=== PATIENT | male | born 1960 | race Two or more races ===

== ENCOUNTER 2016-10-02 05:10 | Inpatient (IN) | payer OTHER ==
[~2016-10-02] VITALS: Ht 167.6 cm; Wt 64.5 kg
[2016-10-02 05:48] LABS: BASOPHIL % 0.4 % (0-2); PLATELET COUNT 212 x10^3mcL (130-400); RED CELL DISTRIBUTION WIDTH 16.4 % (11.5-14.5)
[2016-10-02 06:04] LABS: ALBUMIN 3.4 g/dL (3.4-5.0); BILIRUBIN TOTAL 0.43 mg/dL (0.20-1.00); CALCIUM 9.3 mg/dL (8.5-10.1); CARBON DIOXIDE 24.3 mmol/L (21-32); MAGNESIUM 2.8 mg/dL (1.8-2.4); POTASSIUM SERUM 4.2 mmol/L (3.5-5.1)
[2016-10-02 06:12] LABS: TOTAL PROTEIN, SERUM 8.4 g/dL (6.4-8.2)
[2016-10-02 06:16] LABS: CREATININE SERUM 13.9 mg/dL (0.7-1.3)
[2016-10-02] MEDS ORDERED: NOR10 PO (07:11)
[2016-10-02] MEDS ORDERED: FOSRENOL1000 M1 PO (07:12)
[2016-10-02] MEDS ORDERED: BENAZEPRIL HYDR40 M1 PO (07:12)
[2016-10-02] MEDS ORDERED: HUMULIN 70/303 ML (07:13)
[2016-10-02] MEDS ORDERED: TOPROL XL25 MG PO (07:14)
[2016-10-02] MEDS ORDERED: CATAPRES0.1 MG PO (07:14)
[2016-10-02] MEDS ORDERED: NATURE'S BLEND F1 MG PO (07:14)
[2016-10-02] MEDS ORDERED: REG5 PO (07:15)
[2016-10-02 08:46] VITALS: BP 135/67
[2016-10-02 10:38] LABS: CHOLESTEROL/HDL RATIO 3.7; PHOSPHOROUS 4.3 mg/dL (2.5-4.9)
[2016-10-02 14:20] VITALS: BP 149/73
[2016-10-02 15:00] LABS: T3 TOTAL 0.8 ng/mL
[2016-10-02 16:30] LABS: FREE T4 0.97 ng/dL (0.76-1.46); T4(THYROXINE) 5.8 ug/dL (4.7-13.3)
[2016-10-02 19:05] VITALS: BP 149/72
[2016-10-02 22:14] VITALS: BP 108/61
[2016-10-03 06:07] VITALS: BP 111/59
[2016-10-03 06:22] LABS: BASOPHIL % 0.7 % (0-2); PLATELET COUNT 199 x10^3mcL (130-400)
[2016-10-03 06:43] LABS: CALCIUM 9.1 mg/dL (8.5-10.1); CARBON DIOXIDE 27.6 mmol/L (21-32); MAGNESIUM 2.3 mg/dL (1.8-2.4); POTASSIUM SERUM 4.1 mmol/L (3.5-5.1)
[2016-10-03 07:22] LABS: CREATININE SERUM 9.9 mg/dL (0.7-1.3)
[2016-10-03 07:43] LABS: RED CELL DISTRIBUTION WIDTH 16.3 % (11.5-14.5)
[2016-10-03 09:54] VITALS: BP 106/60
[2016-10-03 13:42] VITALS: BP 106/60
[2016-10-03 14:00] VITALS: BP 132/68
== END 2016-10-03 16:50 | disposition home or self-care (01) | DRG 312 ==
LOC: ED 05:10 → DU 07:27
PROVIDERS: Emergency Medicine; ADMIT Family Medicine
DX: R55 Syncope and collapse (principal); K85.90 Acute pancreatitis without necrosis or infection, unspecified; N18.6 End stage renal disease; N17.0 Acute kidney failure with tubular necrosis; I12.0 Hypertensive chronic kidney disease with stage 5 chronic kidney disease or end stage renal disease; D68.69 Other thrombophilia; S00.03XA Contusion of scalp, initial encounter; S00.81XA Abrasion of other part of head, initial encounter; E11.59 Type 2 diabetes mellitus with other circulatory complications; E11.22 Type 2 diabetes mellitus with diabetic chronic kidney disease; E11.51 Type 2 diabetes mellitus with diabetic peripheral angiopathy without gangrene; E11.65 Type 2 diabetes mellitus with hyperglycemia; H54.42 Blindness, left eye, normal vision right eye; Z79.4 Long term (current) use of insulin; Z99.2 Dependence on renal dialysis; W18.11XA Fall from or off toilet without subsequent striking against object, initial encounter; Y93.9 Activity, unspecified; Y92.002 Bathroom of unspecified non-institutional (private) residence as the place of occurrence of the external cause
CPT/HCPCS: 82962; 83880; 84439; J7030; J8597; Q0092

== ENCOUNTER 2017-10-27 12:36 | Emergency (ER) | payer OTHER ==
[~2017-10-27] VITALS: Ht 170.2 cm; Wt 64.4 kg
[~2017-10-27 12:36] MED LIST: BENAZEPRIL HYDR40 M1 PO; CATAPRES0.1 MG PO; FOSRENOL1000 M1 PO; HUMULIN 70/303 ML; NATURE'S BLEND F1 MG PO; NOR10 PO; REG5 PO; TOPROL XL25 MG PO
[2017-10-27 12:42] VITALS: Ht 170.2 cm; Wt 64.4 kg
[2017-10-27 13:07] LABS: BASOPHIL % 0.4 % (0-2); PLATELET COUNT 204 x10^3mcL (130-400)
[2017-10-27 13:11] LABS: RED CELL DISTRIBUTION WIDTH 15.9 % (11.5-14.5)
[2017-10-27 13:21] LABS: CALCIUM 8.6 mg/dL (8.5-10.1); CARBON DIOXIDE 34.1 mmol/L (21-32); POTASSIUM SERUM 5.2 mmol/L (3.5-5.1)
[2017-10-27 13:25] LABS: CREATININE SERUM 7.2 mg/dL (0.7-1.3)
[2017-10-27 18:07] VITALS: BP 143/73
== END 2017-10-27 18:07 | disposition home or self-care (01) ==
LOC: ED 12:36
PROVIDERS: Emergency Medicine
DX: D62 Acute posthemorrhagic anemia (principal); E11.22 Type 2 diabetes mellitus with diabetic chronic kidney disease; I12.9 Hypertensive chronic kidney disease with stage 1 through stage 4 chronic kidney disease, or unspecified chronic kidney disease; N18.9 Chronic kidney disease, unspecified
CPT/HCPCS: 36415; J7050; P9016; Q0092

== ENCOUNTER 2018-03-29 16:01 | Inpatient (IN) | payer OTHER ==
[~2018-03-29] VITALS: Ht 162.6 cm; Wt 61.8 kg
[2018-03-29 16:09] VITALS: Ht 162.6 cm; Wt 61.8 kg
[2018-03-29 16:51] LABS: BASOPHIL % 0 % (0-2); PLATELET COUNT 434 x10^3mcL (130-400)
[2018-03-29 17:00] LABS: MAGNESIUM 2.4 mg/dL (1.8-2.4)
[2018-03-29 17:06] LABS: BILIRUBIN TOTAL 0.4 mg/dL (0.20-1.00); CALCIUM 9.6 mg/dL (8.5-10.1)
[2018-03-29 17:12] LABS: ALBUMIN 2.7 g/dL (3.4-5.0); TOTAL PROTEIN, SERUM 8.6 g/dL (6.4-8.2)
[2018-03-29 17:36] LABS: PHOSPHOROUS 13.7 mg/dL (2.5-4.9)
[2018-03-29 20:25] LABS: CHOLESTEROL/HDL RATIO 3.7
[2018-03-29 22:15] VITALS: BP 151/68
[2018-03-30 05:50] VITALS: BP 142/46
[2018-03-30 07:08] LABS: CALCIUM 9.4 mg/dL (8.5-10.1); CARBON DIOXIDE 14.2 mmol/L (21-32); MAGNESIUM 2.5 mg/dL (1.8-2.4)
[2018-03-30 08:03] LABS: CREATININE SERUM 21.3 mg/dL (0.7-1.3); POTASSIUM SERUM 5.8 mmol/L (3.5-5.1)
[2018-03-30 08:15] LABS: BASOPHIL % 0.5 % (0-2); PLATELET COUNT 382 x10^3mcL (130-400); RED CELL DISTRIBUTION WIDTH 16.8 % (11.5-14.5)
[2018-03-30 10:07] VITALS: BP 128/60
[2018-03-30 12:24] VITALS: BP 136/59
[2018-03-30 17:30] VITALS: BP 144/66
[2018-03-30 20:00] VITALS: BP 145/62
[2018-03-31 00:55] VITALS: BP 144/62
[2018-03-31 05:19] VITALS: BP 154/76
[2018-03-31 07:13] LABS: BASOPHIL % 0.2 % (0-2); PLATELET COUNT 391 x10^3mcL (130-400)
[2018-03-31 07:14] LABS: RED CELL DISTRIBUTION WIDTH 16.7 % (11.5-14.5)
[2018-03-31 07:26] LABS: CALCIUM 8.6 mg/dL (8.5-10.1); CARBON DIOXIDE 21.1 mmol/L (21-32); MAGNESIUM 2.2 mg/dL (1.8-2.4); POTASSIUM SERUM 5.5 mmol/L (3.5-5.1)
[2018-03-31 07:32] LABS: CREATININE SERUM 19.5 mg/dL (0.7-1.3)
[2018-03-31 07:57] LABS: PHOSPHOROUS 11.6 mg/dL (2.5-4.9)
[2018-03-31 08:55] VITALS: BP 131/60
[2018-03-31 13:05] VITALS: BP 125/56
[2018-03-31 16:40] VITALS: BP 124/52
[2018-03-31 20:24] VITALS: BP 148/64
[2018-04-01 05:01] VITALS: BP 134/60
[2018-04-01 06:49] LABS: CALCIUM 8.1 mg/dL (8.5-10.1); CARBON DIOXIDE 17.4 mmol/L (21-32); MAGNESIUM 2.1 mg/dL (1.8-2.4)
[2018-04-01 07:23] LABS: POTASSIUM SERUM 6.7 mmol/L (3.5-5.1)
[2018-04-01 07:24] LABS: CREATININE SERUM 20.8 mg/dL (0.7-1.3)
[2018-04-01 08:25] LABS: BASOPHIL % 0.4 % (0-2); PLATELET COUNT 376 x10^3mcL (130-400)
[2018-04-01 08:28] LABS: RED CELL DISTRIBUTION WIDTH 16.8 % (11.5-14.5)
[2018-04-01 09:34] VITALS: BP 138/58
[2018-04-01 10:01] LABS: BILIRUBIN TOTAL 0.46 mg/dL (0.20-1.00); CALCIUM 8.3 mg/dL (8.5-10.1); CARBON DIOXIDE 15.8 mmol/L (21-32); TOTAL PROTEIN, SERUM 7.1 g/dL (6.4-8.2)
[2018-04-01 10:18] LABS: CREATININE SERUM 21.6 mg/dL (0.7-1.3)
[2018-04-01 14:21] LABS: BASOPHIL % 0.7 % (0-2); PLATELET COUNT 367 x10^3mcL (130-400)
[2018-04-01 14:37] LABS: RED CELL DISTRIBUTION WIDTH 17.1 % (11.5-14.5)
[2018-04-01 16:24] LABS: rbc morphology (normal/abnorm) ABNORMAL (NORMAL)
[2018-04-01 16:25] LABS: ovalocyte/elliptocyte 1+
[2018-04-01 16:26] LABS: ovalocyte/elliptocyte 1+; rbc morphology (normal/abnorm) ABNORMAL (NORMAL); tear drop cell (dacryocyte) 1+
[2018-04-01 18:03] VITALS: BP 137/57
[2018-04-01 21:16] VITALS: BP 169/63
[2018-04-01 22:08] LABS: BASOPHIL % 0.2 % (0-2); PLATELET COUNT 354 x10^3mcL (130-400)
[2018-04-01 22:12] LABS: RED CELL DISTRIBUTION WIDTH 16.5 % (11.5-14.5)
[2018-04-01 23:08] VITALS: BP 172/74
[2018-04-02 00:48] VITALS: BP 164/73
[2018-04-02 05:45] VITALS: BP 149/68
[2018-04-02 06:30] LABS: BASOPHIL % 0.5 % (0-2); PLATELET COUNT 344 x10^3mcL (130-400)
[2018-04-02 07:04] LABS: CALCIUM 8.6 mg/dL (8.5-10.1); CARBON DIOXIDE 23.8 mmol/L (21-32); MAGNESIUM 1.7 mg/dL (1.8-2.4); POTASSIUM SERUM 4.2 mmol/L (3.5-5.1)
[2018-04-02 08:00] LABS: CREATININE SERUM 14.9 mg/dL (0.7-1.3)
[2018-04-02 08:03] LABS: PHOSPHOROUS 9.9 mg/dL (2.5-4.9)
[2018-04-02 08:56] VITALS: BP 148/67
[2018-04-02 12:30] VITALS: BP 148/70
[2018-04-02 17:35] VITALS: BP 157/67
[2018-04-02 20:58] VITALS: BP 125/67
[2018-04-03 05:34] VITALS: BP 154/74
[2018-04-03 07:07] LABS: BASOPHIL % 0.2 % (0-2); PLATELET COUNT 365 x10^3mcL (130-400)
[2018-04-03 07:10] LABS: RED CELL DISTRIBUTION WIDTH 17.3 % (11.5-14.5)
[2018-04-03 07:16] LABS: CALCIUM 9.2 mg/dL (8.5-10.1); MAGNESIUM 1.8 mg/dL (1.8-2.4); PHOSPHOROUS 7.7 mg/dL (2.5-4.9); POTASSIUM SERUM 4.6 mmol/L (3.5-5.1)
[2018-04-03 07:18] LABS: CREATININE SERUM 11.8 mg/dL (0.7-1.3)
[2018-04-03 09:21] VITALS: BP 145/70
[2018-04-03 12:50] VITALS: BP 153/73
[2018-04-03 17:28] VITALS: BP 154/79
[2018-04-03 21:23] VITALS: BP 166/75
[2018-04-04 05:20] VITALS: BP 164/80
[2018-04-04 06:44] LABS: BASOPHIL % 0.3 % (0-2); PLATELET COUNT 357 x10^3mcL (130-400); RED CELL DISTRIBUTION WIDTH 16.7 % (11.5-14.5)
[2018-04-04 07:08] LABS: CALCIUM 9.6 mg/dL (8.5-10.1); CARBON DIOXIDE 23.7 mmol/L (21-32); MAGNESIUM 2.2 mg/dL (1.8-2.4); POTASSIUM SERUM 4.9 mmol/L (3.5-5.1)
[2018-04-04 07:11] LABS: CREATININE SERUM 13.9 mg/dL (0.7-1.3)
[2018-04-04 09:09] VITALS: BP 153/69
[2018-04-04 12:06] VITALS: BP 138/60
[2018-04-04 13:01] VITALS: BP 137/63
[2018-04-04 21:27] VITALS: BP 150/72
[2018-04-05 06:17] VITALS: BP 148/68
[2018-04-05 08:58] VITALS: BP 137/61
[2018-04-05 13:05] VITALS: BP 133/70
[2018-04-05 13:19] VITALS: BP 133/70
== END 2018-04-05 15:35 | disposition home or self-care (01) | DRG 252 ==
LOC: ED 16:01 → DU 19:48
PROVIDERS: Emergency Medicine; Family Medicine; General Practice; Surgery; ADMIT Internal Medicine
PROC: 05H533Z Insertion of Infusion Device into Right Subclavian Vein, Percutaneous Approach (ICD-10-PCS; 2018-04-01)
PROC: B546ZZA Ultrasonography of Right Subclavian Vein, Guidance (ICD-10-PCS; 2018-04-01)
PROC: B548ZZZ Ultrasonography of Superior Vena Cava (ICD-10-PCS; principal; 2018-04-01 12:00)
PROC: 057F3ZZ Dilation of Left Cephalic Vein, Percutaneous Approach (ICD-10-PCS; 2018-04-02)
PROC: B51WYZZ Fluoroscopy of Dialysis Shunt/Fistula using Other Contrast (ICD-10-PCS; 2018-04-02)
PROC: B31JYZZ Fluoroscopy of Left Upper Extremity Arteries using Other Contrast (ICD-10-PCS; 2018-04-02)
DX: T82.590A Other mechanical complication of surgically created arteriovenous fistula, initial encounter (principal); J18.9 Pneumonia, unspecified organism; N18.6 End stage renal disease; E43 Unspecified severe protein-calorie malnutrition; K85.90 Acute pancreatitis without necrosis or infection, unspecified; I12.0 Hypertensive chronic kidney disease with stage 5 chronic kidney disease or end stage renal disease; D68.69 Other thrombophilia; E87.1 Hypo-osmolality and hyponatremia; E11.22 Type 2 diabetes mellitus with diabetic chronic kidney disease; E11.65 Type 2 diabetes mellitus with hyperglycemia; K52.9 Noninfective gastroenteritis and colitis, unspecified; E83.39 Other disorders of phosphorus metabolism; E87.5 Hyperkalemia; D63.1 Anemia in chronic kidney disease; Z99.2 Dependence on renal dialysis; Z68.23 Body mass index [BMI] 23.0-23.9, adult; Z79.84 Long term (current) use of oral hypoglycemic drugs
CPT/HCPCS: 36005; 82962; 83880; A4301; C1769; C1884; C1887; J0610; J0885-EC; J1644; J1956; J2001; J2250; J2405; J3010; J3490; J7030; J7040; J7050; J7613; P9016; Q0092; Q0163; Q9967

== ENCOUNTER 2018-05-08 08:34 | Inpatient (IN) | payer OTHER ==
[~2018-05-08] VITALS: Ht 162.6 cm; Wt 62.8 kg
[2018-05-08 08:40] VITALS: Ht 162.6 cm; Wt 62.8 kg
[2018-05-08 10:14] LABS: BASOPHIL % 0.1 % (0-2); PLATELET COUNT 385 x10^3mcL (130-400)
[2018-05-08 10:17] LABS: RED CELL DISTRIBUTION WIDTH 18.2 % (11.5-14.5)
[2018-05-08 10:31] LABS: CALCIUM 7.6 mg/dL (8.5-10.1); CARBON DIOXIDE 10.1 mmol/L (21-32); POTASSIUM SERUM 5.2 mmol/L (3.5-5.1)
[2018-05-08 10:37] LABS: BILIRUBIN TOTAL 0.44 mg/dL (0.20-1.00)
[2018-05-08 10:39] LABS: T3 TOTAL 0.45 ng/mL
[2018-05-08 10:41] LABS: FREE T4 0.71 ng/dL (0.76-1.46)
[2018-05-08 10:46] LABS: ALBUMIN 2.5 g/dL (3.4-5.0); CHOLESTEROL/HDL RATIO 2.5
[2018-05-08 11:14] LABS: CREATININE SERUM 23.8 mg/dL (0.7-1.3)
[2018-05-08 16:18] LABS: MAGNESIUM 3.1 mg/dL (1.8-2.4)
[2018-05-08 17:15] LABS: PHOSPHOROUS 8.7 mg/dL (2.5-4.9)
[2018-05-08 17:20] VITALS: BP 156/65
[2018-05-08 20:25] VITALS: BP 152/63
[2018-05-09 05:19] VITALS: BP 133/57
[2018-05-09 06:20] LABS: BASOPHIL % 0.6 % (0-2); PLATELET COUNT 370 x10^3mcL (130-400)
[2018-05-09 07:08] LABS: CALCIUM 7.5 mg/dL (8.5-10.1); MAGNESIUM 2.8 mg/dL (1.8-2.4); POTASSIUM SERUM 5.5 mmol/L (3.5-5.1)
[2018-05-09 07:18] LABS: RED CELL DISTRIBUTION WIDTH 18.4 % (11.5-14.5)
[2018-05-09 07:32] LABS: PHOSPHOROUS 7.5 mg/dL (2.5-4.9)
[2018-05-09 08:00] VITALS: BP 156/66
[2018-05-09 09:34] VITALS: BP 156/66
[2018-05-09 13:04] VITALS: BP 140/62
[2018-05-09 17:32] VITALS: BP 125/53
[2018-05-09 21:01] VITALS: BP 125/59
[2018-05-10 06:06] LABS: PLATELET COUNT 332 x10^3mcL (130-400)
[2018-05-10 06:12] VITALS: BP 153/64
[2018-05-10 06:39] LABS: CALCIUM 7.9 mg/dL (8.5-10.1); CARBON DIOXIDE 16.5 mmol/L (21-32); MAGNESIUM 2.2 mg/dL (1.8-2.4); PHOSPHOROUS 8.8 mg/dL (2.5-4.9); POTASSIUM SERUM 3.6 mmol/L (3.5-5.1)
[2018-05-10 06:47] LABS: CREATININE SERUM 14.5 mg/dL (0.7-1.3)
[2018-05-10 08:00] LABS: BASOPHIL % 0 % (0-2); RED CELL DISTRIBUTION WIDTH 18.3 % (11.5-14.5)
[2018-05-10 09:04] VITALS: BP 143/55
[2018-05-10 14:06] VITALS: BP 130/55
[2018-05-10 21:12] VITALS: BP 147/66
[2018-05-11 05:33] VITALS: BP 144/64
[2018-05-11 06:49] LABS: CALCIUM 7.8 mg/dL (8.5-10.1); CARBON DIOXIDE 20.2 mmol/L (21-32); MAGNESIUM 1.9 mg/dL (1.8-2.4); PHOSPHOROUS 8.4 mg/dL (2.5-4.9); POTASSIUM SERUM 4.2 mmol/L (3.5-5.1)
[2018-05-11 06:53] LABS: CREATININE SERUM 10.6 mg/dL (0.7-1.3)
[2018-05-11 06:57] LABS: PLATELET COUNT 302 x10^3mcL (130-400)
[2018-05-11 07:12] LABS: BASOPHIL % 0 % (0-2); RED CELL DISTRIBUTION WIDTH 18.3 % (11.5-14.5)
[2018-05-11 09:27] VITALS: BP 143/63
[2018-05-11 15:04] VITALS: BP 138/59
[2018-05-11 17:01] VITALS: BP 154/57
[2018-05-11 19:20] VITALS: BP 153/52
[2018-05-12 05:22] VITALS: BP 131/49
[2018-05-12 07:39] LABS: BASOPHIL % 0.3 % (0-2); PLATELET COUNT 275 x10^3mcL (130-400)
[2018-05-12 07:46] LABS: RED CELL DISTRIBUTION WIDTH 16.6 % (11.5-14.5)
[2018-05-12 08:39] LABS: CALCIUM 7.3 mg/dL (8.5-10.1); CARBON DIOXIDE 24.8 mmol/L (21-32); MAGNESIUM 1.6 mg/dL (1.8-2.4); PHOSPHOROUS 7.9 mg/dL (2.5-4.9); POTASSIUM SERUM 3.9 mmol/L (3.5-5.1)
[2018-05-12 08:57] VITALS: BP 122/48
[2018-05-12 12:31] VITALS: BP 122/48
[2018-05-12 13:19] VITALS: BP 119/60
== END 2018-05-12 14:46 | disposition home or self-care (01) | DRG 673 ==
LOC: ED 08:34 → DU 14:35
PROVIDERS: General Practice; Specialist; ADMIT Internal Medicine
PROC: 05HM33Z Insertion of Infusion Device into Right Internal Jugular Vein, Percutaneous Approach (ICD-10-PCS; principal; 2018-05-09)
PROC: B543ZZA Ultrasonography of Right Jugular Veins, Guidance (ICD-10-PCS; 2018-05-09)
PROC: 057F3ZZ Dilation of Left Cephalic Vein, Percutaneous Approach (ICD-10-PCS; 2018-05-10)
PROC: B51WYZZ Fluoroscopy of Dialysis Shunt/Fistula using Other Contrast (ICD-10-PCS; 2018-05-10)
PROC: B31J1ZZ Fluoroscopy of Left Upper Extremity Arteries using Low Osmolar Contrast (ICD-10-PCS; 2018-05-10)
PROC: 031809D Bypass Left Brachial Artery to Upper Arm Vein with Autologous Venous Tissue, Open Approach (ICD-10-PCS; 2018-05-11)
PROC: 037 Upper Arteries, Dilation (ICD-10-PCS; 2018-05-11)
PROC: B54 Imaging, Veins, Ultrasonography (ICD-10-PCS; 2018-05-11)
PROC: 05HM33Z Insertion of Infusion Device into Right Internal Jugular Vein, Percutaneous Approach (ICD-10-PCS; 2018-05-11)
PROC: B543ZZA Ultrasonography of Right Jugular Veins, Guidance (ICD-10-PCS; 2018-05-11)
DX: I12.0 Hypertensive chronic kidney disease with stage 5 chronic kidney disease or end stage renal disease (principal); N17.0 Acute kidney failure with tubular necrosis; E43 Unspecified severe protein-calorie malnutrition; K85.90 Acute pancreatitis without necrosis or infection, unspecified; N18.6 End stage renal disease; E87.2 Acidosis; D68.69 Other thrombophilia; T82.868A Thrombosis due to vascular prosthetic devices, implants and grafts, initial encounter; E11.22 Type 2 diabetes mellitus with diabetic chronic kidney disease; E11.65 Type 2 diabetes mellitus with hyperglycemia; D63.1 Anemia in chronic kidney disease; E83.42 Hypomagnesemia; E87.5 Hyperkalemia; E83.39 Other disorders of phosphorus metabolism; Z99.2 Dependence on renal dialysis; Z68.21 Body mass index [BMI] 21.0-21.9, adult; Z79.84 Long term (current) use of oral hypoglycemic drugs
CPT/HCPCS: 36005; 36600; 82962; 83880; 84439; A4301; C1760; C1769; C1887; G0480; J0690; J1170; J1642; J1644; J2001; J2060; J2250; J2405; J2704; J2765; J3010; J3490; J7030; J7050; Q0092; Q0163; Q9967

== ENCOUNTER 2018-05-16 10:36 | Inpatient (IN) | payer OTHER ==
[~2018-05-16] VITALS: Ht 152.4 cm; Wt 61.9 kg
[2018-05-16 12:36] LABS: BASOPHIL % 0.7 % (0-2); PLATELET COUNT 300 x10^3mcL (130-400)
[2018-05-16 12:55] LABS: RED CELL DISTRIBUTION WIDTH 16.6 % (11.5-14.5)
[2018-05-16 12:57] LABS: BILIRUBIN TOTAL 0.23 mg/dL (0.20-1.00); CALCIUM 8.4 mg/dL (8.5-10.1); CARBON DIOXIDE 28.6 mmol/L (21-32); POTASSIUM SERUM 3.6 mmol/L (3.5-5.1)
[2018-05-16 12:59] LABS: ALBUMIN 2.3 g/dL (3.4-5.0); CREATININE SERUM 4.9 mg/dL (0.7-1.3)
[2018-05-16 13:21] LABS: ovalocyte/elliptocyte 3+; rbc morphology (normal/abnorm) ABNORMAL (NORMAL)
[2018-05-16 14:59] LABS: MAGNESIUM 2.2 mg/dL (1.8-2.4)
[2018-05-16 15:02] LABS: CHOLESTEROL/HDL RATIO 2.5
[2018-05-16 16:43] VITALS: BP 118/50
[2018-05-16 16:50] VITALS: Ht 152.4 cm; Wt 61.9 kg
[2018-05-16 20:06] VITALS: BP 128/47
[2018-05-17 05:04] VITALS: BP 123/54
[2018-05-17 06:36] LABS: CALCIUM 7.7 mg/dL (8.5-10.1); CARBON DIOXIDE 24.9 mmol/L (21-32); MAGNESIUM 2.2 mg/dL (1.8-2.4); POTASSIUM SERUM 4.4 mmol/L (3.5-5.1)
[2018-05-17 06:53] LABS: CREATININE SERUM 7.1 mg/dL (0.7-1.3)
[2018-05-17 07:55] LABS: BASOPHIL % 0.8 % (0-2); PLATELET COUNT 272 x10^3mcL (130-400); RED CELL DISTRIBUTION WIDTH 17.6 % (11.5-14.5)
[2018-05-17 08:01] VITALS: BP 132/70
[2018-05-17 12:10] VITALS: BP 121/55
[2018-05-17 12:52] VITALS: BP 121/55
== END 2018-05-17 15:45 | disposition home or self-care (01) | DRG 682 ==
LOC: ED 10:36 → MU 13:34 → DU 13:34
PROVIDERS: Specialist; ADMIT General Practice
PROC: 30233N1 Transfusion of Nonautologous Red Blood Cells into Peripheral Vein, Percutaneous Approach (ICD-10-PCS; principal; 2018-05-16)
DX: I12.0 Hypertensive chronic kidney disease with stage 5 chronic kidney disease or end stage renal disease (principal); N17.0 Acute kidney failure with tubular necrosis; E43 Unspecified severe protein-calorie malnutrition; N18.6 End stage renal disease; E87.1 Hypo-osmolality and hyponatremia; D63.1 Anemia in chronic kidney disease; Z68.23 Body mass index [BMI] 23.0-23.9, adult; E11.22 Type 2 diabetes mellitus with diabetic chronic kidney disease; E11.65 Type 2 diabetes mellitus with hyperglycemia; Z99.2 Dependence on renal dialysis; Z79.84 Long term (current) use of oral hypoglycemic drugs
CPT/HCPCS: 82962; 83880; J0885-EC; J7040; J7050; J8597; P9016; Q0092; Q0163

== ENCOUNTER 2018-07-06 17:49 | Inpatient (IN) | payer OTHER ==
[~2018-07-06] VITALS: Ht 152.4 cm; Wt 61.4 kg
--- NOTE | 2018-07-06 19:17 | NUR ---
PT BROUGHT IN BY FOR FEVER X 3 DAYS. REPORTS HAVING TUNNEL CATH PLACED TO RIGHT UPPER CHEST 6 WEEKS AGO. STATES LAST TIME HE RECEIVED HEMODIALYSIS WAS TODAY (Wed). PT AWAKE, ALERT, RESPIRATIONS EVEN AND UNLABORED, DENIES PAIN. SAFETY PRECAUTIONS IN PLACE. WILL CONTINUE TO MONITOR
--- NOTE | 2018-07-06 19:22 | NUR ---
DR. FERMIN IN FOR MSE
--- NOTE | 2018-07-06 19:58 | NUR ---
TEMP 102.9, PT WAS FOUND WITH BLANKET ON. ENCOURAGED TO REMAIN BLANKET OFF. PT AND VERBALIZE UNDERSTANDING. COOLING MEASURES CONTINUED. RESPIRATIONS EVEN AND UNLABORED. AWAKE, ALERT. SAFETY PRECAUTIONS IN PLACE
[2018-07-06 20:04] LABS: PLATELET COUNT 254 x10^3mcL (130-400)
[2018-07-06 20:21] LABS: BAND NEUTROPHIL 9 % (0-10); BASOPHIL 0 % (0-2); MONOCYTE 5 % (0-7); SEGMENTED NEUTROPHILS 82 % (37-75)
[2018-07-06 20:22] LABS: PLATELET MORPHOLOGY PLATELETS NORMAL; rbc morphology (normal/abnorm) NORMAL (NORMAL)
[2018-07-06 20:23] LABS: ALBUMIN 3.4 g/dL (3.4-5.0); BILIRUBIN TOTAL 0.52 mg/dL (0.20-1.00); CALCIUM 9.5 mg/dL (8.5-10.1)
[2018-07-06 20:26] LABS: POTASSIUM SERUM 5.7 mmol/L (3.5-5.1)
[2018-07-06 20:27] LABS: CREATININE SERUM 9.3 mg/dL (0.7-1.3)
--- NOTE | 2018-07-06 20:31 | NUR ---
PT MEDICATED PER EMAR. PT AWAKE, ALERT, RESPIRATIONS EVEN AND UNLABORED. SAFETY PRECAUTIONS IN PLACE
--- NOTE | 2018-07-06 22:01 | NUR ---
PT AWAKE, ALERT, RESPIRATIONS EVEN AND UNLABORED. SAFETY PRECAUTIONS IN PLACE. AT BEDSIDE. MADE DR. FERMIN AWARE OF ELEVATED POTASSIUM LEVEL, DR. FERMIN VERBALIZED UNDERSTANDING, NO ORDERS RECEIVED
[2018-07-06] MEDS ORDERED: RENVELA800 M1 PO (22:04)
[2018-07-06] MEDS ORDERED: KIONEX15 GM/60 M (22:05)
[2018-07-06 22:32] LABS: CHOLESTEROL/HDL RATIO 2.5; MAGNESIUM 2.8 mg/dL (1.8-2.4); PHOSPHOROUS 4.6 mg/dL (2.5-4.9)
[2018-07-06 22:40] LABS: T3 TOTAL 0.62 ng/mL
--- NOTE | 2018-07-06 22:40 | NUR ---
REPORT GIVEN TO KALLIE, ALL QUESTIONS AND CONCERNS WERE ADDRESSED
--- NOTE | 2018-07-06 22:43 | NUR ---
DR. FERMIN IN ROOM
[2018-07-06 22:45] LABS: FREE T4 0.87 ng/dL (0.76-1.46); FREE THYROXINE INDEX 2.2 ug/dL (1.4-4.5)
[2018-07-06] MEDS ORDERED: METOPROLOL TART25 M1 PO (22:48)
--- NOTE | 2018-07-06 22:59 | NUR ---
PT AMBULATED TO AND FROM RESTROOM WITH STEADY GAIT.
--- NOTE | 2018-07-06 23:20 | NUR ---
RECEIVED PT FROM ED VIA GUERNEY, CAME IN DUE TO FEVER AND LEFT ARM PAIN. AAOX4. DENIES HEADACHE/DIZZINESS. ABLE TO FOLLOW COMMANDS. SPEECH IS CLEAR. NO FACIAL DROOP/ARM DRIFT NOTED. NO SOB, LUNG SOUNDS CTA, O2 SAT=99% ON 2LPM/NC. DENIES CHEST PAIN/PRESSURE, SR ON THE MONITOR. DENIES ABDOMINAL DISCOMFORT. BOWEL SOUNDS ACTIVE. ANURIC. ON HD EVERY MWF. W/ RIGHT CHEST PERMACATH, DRESSING CDI. W/ LEFT ARM AV FISTUAL, BRUIT AND THRILL PRESENT, NOTED SUTURE. W/ DRESSING ON THE LUE (S/P DIALYSIS TODAY), NOTED PURPLISH/PINKISH DISCOLORATION SURROUNDING THE DRESSING. W/ RIGHT EYE POOR VISION. IV SITE ON THE RAC IS PATENT AND INTACT. SIDE RAILS UPX2. CALL LIGHT ON REACH. ENDORSED TO PRIMARY NURSE KALLIE FOR CONTINUITY OF CARE
--- NOTE | 2018-07-06 23:21 | NUR ---
PT TRANSFERED TO TELE WITHOUT ANY ISSUES ENCOUNTERED. GERRI MORRIS ACCEPTED PATIENT
[2018-07-06 23:30] VITALS: BP 136/54
[2018-07-06 23:36] VITALS: Ht 152.4 cm; Wt 61.4 kg
--- NOTE | 2018-07-06 23:58 | NUR ---
AWAKE AND ALERT, ANSWERING QUESTIONS APPROPRIATELY. EXPLAINED PLAN OF CARE INCLUDING NEED FOR ANTIBIOTIC. VERBALIZED UNDERSTANDING AND AGREEMENT TO PLAN OF CARE. SALINE LOCK TO RIGHT AC FLUSHED WELL WITH 5ML NS. PT DENIES HAVING ALLERGY TO PENICILLIN. STARTED ORDERED ZOSYN 2.25 GM /50ML BAG IVP. CALL LIGHT WITHIN EASY REACH, REINFORCED NEED TO USE CALL LIGHT TO CALL FOR ASSISTANCE. HOB ELEVATED 30 DEG. BED IN LOWEST POSITION, UPPER SIDE RAILS RAISED.
--- NOTE | 2018-07-07 01:02 | NUR ---
NO ADVERSE REACTIONS FROM ZOSYN. STARTED IVPB VANCOMYCIN. PT AMBULATED TO RESTROOM, GAIT STEADY.
[2018-07-07 05:17] VITALS: BP 123/55
--- NOTE | 2018-07-07 06:22 | NUR ---
EYES CLOSED, EASILY AWAKENED. AFEBRILE. BREATHING UNLABORED. DENIES HAVING PAIN. CALL LIGHT WITHIN EASY REACH.
[2018-07-07 06:26] LABS: PLATELET COUNT 223 x10^3mcL (130-400)
[2018-07-07 06:27] LABS: CALCIUM 9.3 mg/dL (8.5-10.1); CARBON DIOXIDE 21.5 mmol/L (21-32); MAGNESIUM 2.6 mg/dL (1.8-2.4); PHOSPHOROUS 5.2 mg/dL (2.5-4.9); POTASSIUM SERUM 4.9 mmol/L (3.5-5.1)
[2018-07-07 06:39] LABS: CREATININE SERUM 10.2 mg/dL (0.7-1.3)
[2018-07-07 06:54] LABS: BASOPHIL % 0 % (0-2); RED CELL DISTRIBUTION WIDTH 18.9 % (11.5-14.5)
--- NOTE | 2018-07-07 07:10 | NUR ---
EYES CLOSED, BREATHING UNLABORED. CALL LIGHT WITHIN EASY REACH. ENDORSED TO NURSE JD
--- NOTE | 2018-07-07 08:13 | NUR ---
RECEIVED PATIENT FROM [facility] ARREGUIN. PATIENT SLEEPING AT THIS TIME. NO COMPLAINTS OF PAIN. WILL CONTINUE TO MONITOR DIALYSIS ACCESS FOR SWELLING, REDNESS, INFLAMMATION. CALL LIGHT IN REACH.
[2018-07-07 09:18] VITALS: BP 116/68
--- NOTE | 2018-07-07 10:00 | NUR ---
PATIENT IN BED AT THIS TIME. NO COMPLAINTS OF PAIN OR SOB. ASKED FOR TEMPERATURE TO BE TAKEN, 98.1. RECEIVED CALL FROM KATHLEEN IN THE LAB FOR BLOOD CULTURE RESULTS: GRAM POSTIVE COCCI FOUND. DIALED DR BAUGH & LEFT . WILL FU WITH DR BAUGH. CALL LIGHT IN REACH AT THIS TIME.
--- NOTE | 2018-07-07 10:32 | NUR ---
NOTIFIED DR BYRD & DR BAUGH ABOUT BLOOD CULTURE RESULTS.
[2018-07-07 12:23] VITALS: BP 105/48
--- NOTE | 2018-07-07 15:55 | NUR ---
PATIENT IN BED SLEEPING. NO SIGNS OF PAIN OR DISCOMFORT, CALL LIGHT IN REACH. WILL CONTINUE TO MONITOR.
[2018-07-07 17:38] VITALS: BP 122/50
--- NOTE | 2018-07-07 18:36 | NUR ---
PATIENT IN BED RESTING. FAMILY AT BEDSIDE. INFORMED PATIENT & FAMILY THAT BC CAME BACK POSITIVE AND THAT TREATMENT PLAN NOW IS TO CONTINUE ANTIBIOTICS. NO ORDER FOR HD AT THIS TIME, WILL ENDORSE TO ONCOMING NURSE. CALL LIGHT IN REACH AT THIS TIME.
[2018-07-07 19:25] VITALS: BP 122/52
--- NOTE | 2018-07-07 19:25 | NUR ---
RECEIVED PT AWAKE ALERT AND VERBALLY RESPONSIVE IN OCCITAN.DENIES CHESTPAIN AT THIS TIME.BP 122/52 MMHG,HR 64.AV SHUNT TO ISHAN.RAH CATH TO [facility] WITH DRESSING CDI.PT ANURIC.SCATTERED BROWNISH/BLACKISH DISCOLORATION TO BODY D/T SCRATCHES.LATEST TEMP ORALLY @ 98.1F.WILL CONTINUE TO MONITOR.
--- NOTE | 2018-07-08 00:55 | NUR ---
SEEN BY DR. HUGGINS WITH ORDER TO DISCONTINUE RAH CATH DARSHAN.WILL INFORM RESIDENT TO OBTAIN SURGICAL CONSULT.PAGED DR. HUANG AND WILL MAKE AWARE.
--- NOTE | 2018-07-08 04:34 | NUR ---
PT SLEPT WELL.AFEBRILE ALL NIGHT.NO ASE NOTED FROM NAFCILLIN IV ATB .ALL NEEDS MET.WILL CONTINUE TO MONITOR.
--- NOTE | 2018-07-08 06:15 | NUR ---
LATEST TEMP. 97.5F.WILL ENDORSE TO AM NURSE.
[2018-07-08 06:19] VITALS: BP 108/51
[2018-07-08 06:25] LABS: PLATELET COUNT 236 x10^3mcL (130-400)
[2018-07-08 06:29] LABS: CALCIUM 9.5 mg/dL (8.5-10.1); CARBON DIOXIDE 17.4 mmol/L (21-32)
[2018-07-08 07:00] LABS: RED CELL DISTRIBUTION WIDTH 18.5 % (11.5-14.5)
--- NOTE | 2018-07-08 07:00 | NUR ---
RECEIVED BEDSIDE REPORT FROM RN UROLOGY NURSE AT THIS TIME. PATIENT RESTING COMFORTABLY IN BED. NO APPARENT DISTRESS OR DISCOMFORT NOTED. BREATHING EVEN AND UNLABORED. NO RESPIRATORY DISTRESS NOTED. NO INDICATION OF CHEST PAIN AT THIS TIME. AV FISTULA TO ISHAN NOTED.IV PATENT AND INTACT. ALL QUESTIONS AND CONCERNS ADDRESSED. ALL NEEDS ATTENDED TO. WILL CONTINUE TO MONITOR
[2018-07-08 07:03] LABS: CREATININE SERUM 12.5 mg/dL (0.7-1.3); POTASSIUM SERUM 6.5 mmol/L (3.5-5.1)
[2018-07-08 07:32] VITALS: BP 110/45
--- NOTE | 2018-07-08 10:00 | NUR ---
MORNING MEDICATIONS ADMINISTERED. PATIENT TOLERATED WELL. NO ADVERSE EFFECTS NOTED. NO APPARENT DISTRSES OR DISCOMFORT NOTED ALL NEEDS ATTENDED TO. WILL CONTINUE TO MONITOR
--- NOTE | 2018-07-08 11:18 | NUR ---
HEPARIN IV ENDORSED TO DIALYSIS NURSE MICHAEL AT THIS TIME. NO ADVERSE EFFECTS NOTED. ALL NEEDS ATTENDED TO. WILL CONTINUE TO MONITOR
--- NOTE | 2018-07-08 11:30 | NUR ---
PATIENT BLOOD SUGAR 231 AT THIS TIME. 6 UNITS OF INSULIN COVERAGE REQUIRED (SEE EMAR)
[2018-07-08 11:43] VITALS: BP 120/46
[2018-07-08 13:59] LABS: BAND NEUTROPHIL 2 % (0-10); BASOPHIL 0 % (0-2); MONOCYTE 6 % (0-7); SEGMENTED NEUTROPHILS 82 % (37-75)
[2018-07-08 14:00] LABS: rbc morphology (normal/abnorm) ABNORMAL (NORMAL)
[2018-07-08 14:01] LABS: PLATELET MORPHOLOGY PLATELETS INCREASED
[2018-07-08 15:39] VITALS: BP 141/57
--- NOTE | 2018-07-08 16:30 | NUR ---
PATIENT BLOOD SUGAR 187 AT THIS TIME. 3 UNITS INSULIN REQUIRED (SEE EMAR). WILL CONTINUE TO MONITOR
--- NOTE | 2018-07-08 19:25 | NUR ---
REPORT RECIEVED FROM DAY SHIFT RN. PATIENT WAS SEEN AND IS RESTING COMFORTBALY IN BED. ON ROOM AIR. BREATHING EVEN AND UNLABORED. NO SOB OR RESP DISTRESS NOTED. DENIES CHEST PAIN. NO C/O PAIN. IV TO THE RAC. PATENT AND INTACT. NO REDNESS OR SWELLING NOTED. RIGTH CHEST QUITON CATH IN PLACE. AV SHUNT TO ISHAN. COMFORT AND SAFETY MEASURES MAINTAINED. BED IS LOCKED AND IN THE LOWEST POSITION. SIDE RAILS UP X2. CALL LIGHT IS WITHIN REACH. INSTRUCTED PATIENT TO CALL FORT ASSISTANCE. WILL CONTINUE TO MONITOR.
--- NOTE | 2018-07-08 19:32 | NUR ---
PATIENT RESTING COMFORTABLY IN BED AT THIS TIME. NO APPARENT DISTRESS OR DISCOMFORT NOTED. IV PATENT AND INTACT. ALL QUESTIONS AND CONCERNS ADDRESSED. SAFETY PRECAUTIONS MAINTAINED. ALL NEEDS ATTENDED TO. ENDORSED ALL CARE TO MARKETING GRAPHICS SPECIALIST NURSE
[2018-07-08 20:59] VITALS: BP 129/55
--- NOTE | 2018-07-09 00:52 | NUR ---
PATIENT CALLED SAYING HE FEELS HIS SUGAR IS LOW. BLOOD SUGAR CHECKED AND IS AT 45. D50 IVP WAS ADMINISTERED PRESCRIBED. WILL REASSESS BLOOD SUGAR IN 15 MINS. NO DISTRESS NOTED. CALL LIGHT IS WITHIN REACH.
--- NOTE | 2018-07-09 01:25 | NUR ---
BLOOD SUGAR REASSESSED AT 0115 AFTER D50 IVP. BS IS 166. NO INSULIN GIVEN. DR HUANG MADE AWARE. WILL CONTINUE TO MONITOR. NO DISTRESS NOTED. BREATHING EVEN. CALL LIGHT IS WITHIN REACH.
--- NOTE | 2018-07-09 02:59 | NUR ---
PATIENT IS RESTING IN BED COMFORTABLE WITH EYES CLOSED AT THIS TIME. BREATHING EVEN ON ROOM AIR. NO DISTRESS NOTED. IV INFUSING WELL. CALL LIGHT IS WITHIN REACH. WILL CONTINUE TO MONITOR.
--- NOTE | 2018-07-09 05:22 | NUR ---
PATIENT SLEPT IN LONG INTERVALS THROUGHOUT THE NIGHT. NO SIGNIFICANT CHANGES NOTED. BREATHING EVEN ON ROOM AIR. NO SOB OR RESP DISTRESS NOTED. NO C/O PAIN THROUGHOUT THE NIGHT. IV TO THE RAC. PATENT AND AND INTACT. NO REDNESS OR SWELLING NOTED. ALL SAFETY AND COMFORT MEASURES MAINTAINED. CALL LIGHT IS WITHIN REACH. ALL NEEDS AND CONCERNS ADDRESSED. WILL ENDORSE CARE TO DAY SHIFT RN.
[2018-07-09 05:27] VITALS: BP 137/46
[2018-07-09 06:18] LABS: BASOPHIL % 0.9 % (0-2); PLATELET COUNT 265 x10^3mcL (130-400)
[2018-07-09 06:25] LABS: RED CELL DISTRIBUTION WIDTH 18.8 % (11.5-14.5)
[2018-07-09 06:50] LABS: CALCIUM 9.6 mg/dL (8.5-10.1); POTASSIUM SERUM 5.1 mmol/L (3.5-5.1)
[2018-07-09 06:53] LABS: CREATININE SERUM 9.6 mg/dL (0.7-1.3)
[2018-07-09 07:30] VITALS: BP 150/61
--- NOTE | 2018-07-09 07:45 | NUR ---
RECIEVED PT RESTING COMFORTABLY IN BED. ASSESSED AND DOCUMENTED. SAFETY PRECAUTIONS IN PLACE. PT STABLE. NO C/O PAIN. WILL CONTINUE TO MONITOR.
--- NOTE | 2018-07-09 11:30 | NUR ---
PT STABLE AND RESTING COMFORTABLE IN BED. ALL CARES ATTENDED TO. WILL MONITOR
[2018-07-09 12:09] VITALS: BP 148/53
--- NOTE | 2018-07-09 15:00 | NUR ---
PT RESTING COMFORTABLY IN BED. AT BEDSIDE. ALL NEEDS MET. WILL CONTINUE TO MONITOR.
[2018-07-09 16:16] VITALS: BP 159/67
--- NOTE | 2018-07-09 19:20 | NUR ---
PT RESTING COMFORTABLY IN BED WITH AT BEDSIDE. TOLERATED ALL CARES WELL. VS WNL . NO DISTRESS NOTED. REPORT GIVEN TO NUCLEAR EQUIPMENT TEST ENGINEER.
--- NOTE | 2018-07-09 19:50 | NUR ---
PT RESTING IN BED COMFORTABLY, WITH SPOUSE AT BEDSIDE. PT HAS NO ACUTE DISTRESS AT THIS TIME, PT DENIES CHEST PAIN AT THIS TIME, PULSES PALPABLE THROUGHOUT, NO EDEMA PRESENT, LUNG SOUNDS CTA, RESPIRATIONS EVEN AND UNLABORED, BOWLE SOUNDS NORMOACTIVE, ABD SOFT NONTENDER, PT ANURIC, GETS HD M,W,F, PT HAS VARIOUS SKIN DISCOLORATIONS AND SCABS ON THE BUE, AND BACK. PT IS AMBULATORY WITHOUT ASSISTANCE. SAFETY PRECAUTIONS IN PLACE WILL CONTINUE TO MONITOR
[2018-07-09 20:24] VITALS: BP 144/91
--- NOTE | 2018-07-09 21:20 | NUR ---
PT SLEEPING COMFORTABLY IN BED WITH THE TV ON, SMITA ACUTE SIGNS OF DISTRESS AT THIS TIME, RESPIRATIONS EVEN AND UNLABORED, SAFETY PRECAUTIONS IN PLACE WILL CONTINUE TO MONITOR.
--- NOTE | 2018-07-10 00:10 | NUR ---
PT AMBULATED TO BATHROOM AND HAD A SMALL FORMED BM, NO ACUTE DISTRESS AT THIS TIME, PT DENIES SOB AT THIS TIME, SAFETY PRECAUTIONS IN PLACE WILL CONTINUE TO MONITOR
[2018-07-10 05:27] VITALS: BP 136/57
--- NOTE | 2018-07-10 05:37 | NUR ---
PT SLEPT THROUGH MOST OF THE NIGHT EXPECT THE ONE INSTANCE WHEN HE AMBULATED TO THE BATHROOM AND HAD ONE BM, PT HAD NO COMPLAINTS OF PAIN THROUGH THE NIGHT, PT HAD NO ACUTE RESPIRATORY DISTRESS THROUGH THE NIGHT, WILL CONTINUE TO MONITOR AND ENDORSE CARE TO ONCOMING RN
[2018-07-10 06:15] LABS: BASOPHIL % 0.7 % (0-2); PLATELET COUNT 276 x10^3mcL (130-400); RED CELL DISTRIBUTION WIDTH 19.1 % (11.5-14.5)
[2018-07-10 06:44] LABS: CALCIUM 9.2 mg/dL (8.5-10.1); CARBON DIOXIDE 17.2 mmol/L (21-32); MAGNESIUM 2.8 mg/dL (1.8-2.4)
--- NOTE | 2018-07-10 07:25 | NUR ---
RECEIVED PT IN BED. ASSESSED AND DOCUMENTED. DENIES PAIN THIS TIME. STABLE. SAFTEY PRECAUTIONS ARE IN PLACE, WILL CONTINUE MONITOR.
[2018-07-10 08:30] LABS: POTASSIUM SERUM 5.8 mmol/L (3.5-5.1)
--- NOTE | 2018-07-10 08:30 | NUR ---
INFORMED ABOUT K=5.8, PHOS=9.2, MG=2.8 AND BUN/CREA=66/11.5. ALSO SHE IS AWARE ABOUT BLOOD CULTURE SENSITIVITY COMPLETE RESULT. NO NEW ORDER RECEIVED THIS TIME.
[2018-07-10 08:31] LABS: CREATININE SERUM 11.5 mg/dL (0.7-1.3); PHOSPHOROUS 9.2 mg/dL (2.5-4.9)
[2018-07-10 10:23] VITALS: BP 134/50
--- NOTE | 2018-07-10 11:30 | NUR ---
INFORMED DR.SAMUEL ORTA ABOUT K=5.8, PHOS=9.2, MG=2.8 AND BUN/CREAT=66/11.5. HE SAID PT NEED HD STAT. HE SAID PT DOESNOT NEED VELTASSA PO IF HE GET HD SOON. AWARE AND SHE SAID SHE WILL DC THE ORDER FOR VELTASSA. SPOKE WITH HD NURSE JIMMY WAS ALREADY IN THE [place]. HE INFORMED HD CENTER AND HE SAID HE WILL CALL FOR HD ORDER. CHARGE NURSE AWARE. HD CONSENT ALREADY IN THE CHART. INFORMED PT HE IS GOING HAVE HD TODAY SOON. HE AGREED.
--- NOTE | 2018-07-10 12:30 | NUR ---
HD NURSE JIMMY STARTED THE HD. V/S STABLE. PT IS STABLE.
[2018-07-10 12:40] VITALS: BP 165/63
--- NOTE | 2018-07-10 15:45 | NUR ---
HD FINISHED WITH 2L OUT. PT IS STABLE. V/S STABLE. PT DENIES ANY PAIN. NO DISTRESS NOTED.
--- NOTE | 2018-07-10 17:00 | NUR ---
PT RESTING IN BED COMFORTABLY. DENIES ANY PAIN. STABLE.
[2018-07-10 17:57] VITALS: BP 169/63
--- NOTE | 2018-07-10 19:15 | NUR ---
PT RESTING IN BED COMFORTABLY. DENIES ANY PAIN. STABLE. NO DISTRESS NOTED. FAMILY AT BEDSIDE. GAVE REPORT TO MANUAL QA TESTER NURSE.
--- NOTE | 2018-07-10 19:40 | NUR ---
PT RESTING IN BED COMFORTABLY WITH SPOUSE AT BEDSIDE. PT A/OX 4, PERIPHERAL PULSES PALPABLE, NO EDEMA PRESENT, LUNG SOUNDS CTA, RESPIRATIONS EVEN AND UNLABORED, BOWEL SOUNDS ACTIVE X4 ABD SOFT NONTENDER, PT IS ANURIC, RECIEVES HD TUE, MIGUEL ANGEL, SAT, PT IS AMBULATORY, IF TO THE RIGHT AC, SITE IS FREE OF REDNESS OR SIGNS OF INFILTRATION, SAFETY PRECAUTIONSIN PLACE, WILL CONTINUE TO MONITOR
[2018-07-10 20:59] VITALS: BP 156/53
--- NOTE | 2018-07-10 21:30 | NUR ---
PT RESTING COMFORTABLY IN BED WATCHING TV, NO SIGNS OF ACUTE DISTRESS NOTED AT THIS TIME, PT DENIES PAIN AT THIS TIME, ALL SAFETY PRECAUTIONS IN PLACE WILL CONTINUE TO MONITOR
--- NOTE | 2018-07-11 00:25 | NUR ---
PT UP AND AMBULATED TO THE RESTROOM AND HAD A SMALL LOOSE STOOL, PT RETURNED TO BED, NO ACUTE DISTRESS AT THIS TIME, SAFETY PRECAUTIONS IN PLACE WILL CONTINUE TO MONITOR
[2018-07-11 05:06] VITALS: BP 151/58
--- NOTE | 2018-07-11 05:24 | NUR ---
PT SLEPT COMFORTABLY THROUGH MOST OF THE NIGHT, THE PATIENT HAD NO COMPLAINTS OF CHEST PAIN THROUGH THE NIGHT, PT HAD NO ACUTE SIGNS OF DISTRESS THROUGH THE NIGHT, ALL NEEDS ATTENDED TO, WILL ENDORSE CARE TO ONCOMING RN
[2018-07-11 06:34] LABS: BASOPHIL % 0.9 % (0-2); PLATELET COUNT 285 x10^3mcL (130-400)
[2018-07-11 06:38] LABS: RED CELL DISTRIBUTION WIDTH 18.3 % (11.5-14.5)
[2018-07-11 07:32] LABS: CALCIUM 8.6 mg/dL (8.5-10.1); CARBON DIOXIDE 22.1 mmol/L (21-32); MAGNESIUM 2.3 mg/dL (1.8-2.4); PHOSPHOROUS 7.3 mg/dL (2.5-4.9); POTASSIUM SERUM 4.3 mmol/L (3.5-5.1)
--- NOTE | 2018-07-11 07:40 | NUR ---
PT IS AAOX4. RESP EVEN AND UNLABORED. LUNG SOUNDS CTA. ON R/A. TELE [address] READING NSR. PT HAS SCATTED SCABS AND DISCOLORATION ON BUE, BLE, BACK, ABDOMEN AND CHEST. KITCHENWHERE MAKER. NO S/S OF INFECTION NOTED. PT HAD IV CATH TO RAC WITH FLUIDS RUNNING, PATENT, NO S/S OF INFILTRATION OR INFECTION. PT HAS RAH CATH TO R UPPER CHEST COVERED WITH OCCULSIVE DRESSING, CDI. PT HAS L ARM AV FISTULA, BRUIT AND THRILL NOTED. PT DENIES PAIN AT THIS TIME. CALL LIGHT WITHIN REACH. BED IN LOWEST POSITION.
[2018-07-11 07:44] LABS: CREATININE SERUM 8.5 mg/dL (0.7-1.3)
--- NOTE | 2018-07-11 10:05 | NUR ---
AM ROUNDS DONE BY DR. BYRD AND HEALTHCARE TEAM. PT IS TO HAVE RAH CATH REMOVED TODAY. PT WILL TRANSFER TO SNF FOR ABT. PT AGREED WITH POC.
--- NOTE | 2018-07-11 12:59 | NUR ---
1. Change current diet order to Renal diet since pt is on dialysis.
--- NOTE | 2018-07-11 12:59 | NUR ---
Initial Nutrition Assessment- / MARY HEDRICK MR Dx: Infected dialysis catheter PMHx: HTN, DM, ESRD on MWF HD PSHx: Left AV fistula placement 04/2018 Labs: (07/11) BG 108H, BUN 42H, CREAT 8.5H, PHOS 7.3H Meds: D50%, Humulin, Lactinex, Lopressor, zofran Diet: CCHO PO Intake: (07/10) dinner 100%, Ht: 152.4 cm (60") Wt: 61.3 kg (135#) BMI: 26.4 kg/m2 (overweight) IBW: 106# (48 kg) %IBW: 127 UBW: unable to access Age: 58/M Food Allergies: NKFA Skin: pt has scabs and discoloration with scarring on BUE and BLE, back, abdomen and chest Santhosh: 22 Edema: none GI: Last BM: 07/10/18 Per H&P, Patient is a 58 year old male with PMH of HTN, DM, and ESRD on MWF HD with electrical repairer Dr. Herminio Lawrence presents with fever for 3 days. Patient reports Tmax of 103. Patient uses tylenol for the fever but would come back 5-6 hours later. Patient states he has similar fever a month ago at his dialysis site and was prescribed antibiotic. Patient had a Álvaro catheter placed at the end of April 2018. Per progress note (07/11) pt has mitral valve MSSA endocarditis. RDN visit (07/11): pt was awake and was Turkish speaking. [employer] translate was used for translation. Pt does not have any N/V/D/C at this time and has 'Good' appetite. Diabetes diet education was provided along with [facility] handout on "Type 2 Diabetes Nutrition Therapy". Pt verbalized understanding and did not have any questions at this time. Paged Dr. Sharpe. Communicated recommendations to the MD who returned Dr. Sharpe's page. Problem with: N: no V: no D: no C: no Problems with: Chewing/Swallowing: no Current appetite: Good Recent wt change: unknown Vitamin/Supplement use: unknown Special diet at home: unknown Physical activity: unknwon Education: [place] handout on "Type 2 Diabetes Nutrition Therapy" Estimated Nutritional Needs Based on actual body weight 61.3 kg Energy: 7897-0292 kcal/d (30-35 kcal/kg- dialysis patient) Protein: 73-92 g/d (1.2-1.5 g/kg) - dialysis patient Fluid: 0820-0025 ml/d (1 ml/kcal-fluid balance) or per doctor Nutrition Diagnosis 1. Altered nutrition related lab values related to endocrine and renal dysfunction as evidenced by BUN 42, CR 8.5, BG 108 2. Increased nutrient needs related to ESRD as evidenced by patient undergoing HD. Intervention 1. Change current diet order to Renal diet since pt is on dialysis. Monitor/Evaluate Goal: PO intake at least 75% of estimated needs Monitor: PO intake, Labs, GI function F/U in 7 days as LOW risk 5/6
[2018-07-11 13:31] VITALS: BP 144/61
--- NOTE | 2018-07-11 17:01 | NUR ---
BLOOD SUGAR 134 NO INSULIN COVERAGE NEEDED. DUE MEDS GIVEN. RESP EVEN AND UNLABORED. NO DISTRESS NOTED. DENIES PAIN. CALL LIGHT WITHIN REACH.
[2018-07-11 17:38] VITALS: BP 142/59
--- NOTE | 2018-07-11 18:14 | NUR ---
PT IS AAOX4. PT HAD RAH CATH REMOVED. AREA IS COVERED WITH CDI DRESSING. TELEMONITOR [address] READING NSR. AV FISTULA BANDAGE WITH SPOTTED BLEEDING NOW DRY. AREA WAS REINFORCED WITH ABDOMINAL PAD AND TAPE. IV CATH TO RAC, N/S LOCKED, SITE WNL. BED IN LOWEST POSITION. CALL LIGHT WITHIN REACH. WILL ENDORSE ALL CARE TO NOC RN.
--- NOTE | 2018-07-11 19:00 | NUR ---
RECEIVED PT LAYING IN BED, NO ACUTE DISTRESS OBSERVED, DENIES PAIN OR DISCOMFORT. AA/OX4, ABLE TO MAKE NEES KNOWN. NSR TO TELE #10, DENIES CP. PULSES PRESENT AND EQUAL THROUGHOUT, NO EDEMA. BREATHING ON RA, EVEN AND UNLABORED, NO SOB OR DYSPNEA OBSERVED. ABD ROUND AND SOFT, DENIES N/V/D. ANURIC, HD PT WITH HD SCHEDULED FOR TOMORROW. ISHAN FISTULA WITH DRESSING CDI. AMBULATORY AND ABLE TO REPOSITION SELF IN BED. SCATTERED SCABS AND DISCOLORATION TO GENERALIZED BODY, CHIEF OF PEDIATRIC UROLOGY. RAH CATH TO R UPPER CHEST REMOVED EARLIER TODAY, GAUZE IN PLACE, CDI. IV TO SITE TO RFA IN PLACE, DRY, PATENT, INTACT, S/L AT THIS TIME, NO PAIN, REDNESS OR SWELLING NOTED. COMFORT AND SAFETY MEASURES IN PLACE. ALL NEEDS ASSESSED AND ATTENDED TO. CALL LIGHT WITHIN REACH. WILL CONTINUE TO MONITOR
[2018-07-11 21:08] VITALS: BP 143/55
--- NOTE | 2018-07-12 01:58 | NUR ---
NO ACUTE DISTRESS OBSERVED AT THIS TIME. PT LAYING IN BED, BREATHING EVEN AND UNLABORED, EASILY AROUSABLE TO VERBAL STIMULI, DENIES PAIN OR DISCOMFORT. CALL LIGHT WITHIN REACH. WILL CONTINUE TO MONITOR
--- NOTE | 2018-07-12 05:42 | NUR ---
PT'S BEDSIDE BLOOD SUGAR THIS MORNING, 65. PT OFFERED JUICE OR MILK, HE DECLINED STATING HE WILL WAIT UNTIL BREAKFAST. NO ACUTE DISTRESS OBSERVED, DENIES ANY DISCOMFORT.
--- NOTE | 2018-07-12 05:43 | NUR ---
NO SIGNIFICANT CHANGES TO REPORT, PT COMPLIED WITH NURSING CARE THROUGHOUT THE SHIFT WITH NO ACUTE EVENTS OVERNIGHT. NO ACUTE DISTRESS OBSERVED AT THIS TIME, PT LAYING IN BED, BREATHING EVEN AND UNLABORED. COMFORT AND SAFETY MEASURES MAINTAINED. ALL NEEDS ASSESSED AND ATTENDED TO. CALL LIGHT WITHIN REACH. WILL CONTINUE TO MONITOR AND ENDORSE CARE TO DAY SHIFT NURSE
[2018-07-12 06:06] VITALS: BP 142/56
[2018-07-12 06:17] LABS: BASOPHIL % 0.6 % (0-2); PLATELET COUNT 298 x10^3mcL (130-400)
[2018-07-12 06:38] LABS: CALCIUM 8.8 mg/dL (8.5-10.1); CARBON DIOXIDE 19.1 mmol/L (21-32)
[2018-07-12 06:39] LABS: CREATININE SERUM 10.6 mg/dL (0.7-1.3)
--- NOTE | 2018-07-12 07:15 | NUR ---
RECEIVED PATIENT FROM SCHOOL PHOTOGRAPHS DETAILER NURSE. PATIENT IS RESTING WITH BOTH EYES CLOSED, AROUSABLE. TELE#10, SR, HR 69. ON ROOM AIR, BREATHING EVEN AND UNLABORED. SCATTERED SCABS AND DISCOLORATIONS NOTED TO GEN BODY. ISHAN AV SHUNT NOTED. IV NOTED TO RFA, IVF INFUSING WELL ORDERED, NOO S/S ERYTHEMA AT SITE. CALL LIGHT WITHIN EASY REACH. WILL CONTINUE PLAN OF CARE.
[2018-07-12 08:59] VITALS: BP 137/58
--- NOTE | 2018-07-12 10:38 | NUR ---
HD NURSE AT BEDSIDE TO COMPLETE DIALYSIS.
[2018-07-12 12:38] VITALS: BP 154/63
--- NOTE | 2018-07-12 13:52 | NUR ---
HD COMPLETED. 2L OUT PER HD NURSE. PATIENT TOLERATED WELL. VS STABLE. WILL CONTINUE TO MONITOR.
--- NOTE | 2018-07-12 15:33 | NUR ---
PER DIALYSIS NURSE KENNEDY COMPLETED HD ON PATIENT WITH DIFFICULTY, 2L REMOVED. ISHAN AV SHUNT IS WORKING. ASK KENNEDY TO NOTIFIED ABOUT ISHAN AV SHUNT.
--- NOTE | 2018-07-12 15:33 | NUR ---
CALLED AND SPOKE TO MARTIN(HEALTH CLAIMS EXAMINER) MADE HER AWARE OF COMPLETION OF PT DIALYSIS WHICH IS 2LITERS AND PER HD NURSE THE AV GRAFT TO SPENCER IS WORKING PROPERLY AND SHE DIDN'T HAD ANY PROBLEM ENCOUNTERED DURING THE ENTIRE HD. CALLED AND SPOKE TO AND MADE HER AWARE OF ABOVE WELL.
[2018-07-12 17:32] VITALS: BP 170/63
--- NOTE | 2018-07-12 18:12 | NUR ---
PATIENT RESTING EASY IN BED. DENIES PAIN AND SOB. IV SITE REMAINS INTACT. CALL LIGHT WITHIN EASY REACH. WILL ENDORSE PATIENT CARE TO CARTON MAKING MACHINE OPERATOR NURSE.
--- NOTE | 2018-07-12 19:20 | NUR ---
RECEIVED PT LAYING IN BED, NO ACUTE DISTRESS OBSERVED, DENIES PAIN OR DISCOMFORT. AA/OX4, ABLE TO MAKE NEES KNOWN. NSR TO TELE #10, DENIES CP. PULSES PRESENT AND EQUAL THROUGHOUT, NO EDEMA. BREATHING ON RA, EVEN AND UNLABORED, NO SOB OR DYSPNEA OBSERVED. ABD ROUND AND SOFT, DENIES N/V/D. ANURIC, HD DONE EARLIER TODAY WITH 2L OUT. ISHAN FISTULA (+) BRUIT AND THRILL, WITH DRESSING CDI. AMBULATORY AND ABLE TO REPOSITION SELF IN BED. SCATTERED SCABS AND DISCOLORATION TO GENERALIZED BODY, MANNY. R SUBCLAVIAN PERMACATH REMOVED 07/11/18, GAUZE IN PLACE, CDI. IV TO SITE TO RFA IN PLACE, DRY, PATENT, INTACT, S/L AT THIS TIME, NO PAIN, REDNESS OR SWELLING NOTED. COMFORT AND SAFETY MEASURES IN PLACE. ALL NEEDS ASSESSED AND ATTENDED TO. CALL LIGHT WITHIN REACH. WILL CONTINUE TO MONITOR
[2018-07-12 20:44] VITALS: BP 178/65
--- NOTE | 2018-07-12 21:31 | NUR ---
PT['S BEDSIDE BLOOD SUGAR THIS EVENING 74. PT DENIES HEADACHE, DIZZINESS OR SHAKINESS. APPLE JUICE PROVIDED. ALL OTHER DUE MEDS GIVEN. NO ACUTE DISTRESS OBSERVED. CALL LIGHT WITHIN REACH. WILL CONTINUE TO MONITOR
--- NOTE | 2018-07-13 02:20 | NUR ---
PT AMBULATED TO BATHROOM, ADMITS TO HAVING BM. BACK TO BED WITHOUT INCIDENT. NO ACUTE DISTRESS OBSERVED. CALL LIGHT WITHIN REACH. WILL CONTINUE TO MONITOR
--- NOTE | 2018-07-13 05:24 | NUR ---
NO SIGNIFICANT CHANGES TO REPORT, PT COMPLIED WITH NURSING CARE THROUGHOUT THE SHIFT WITH NO ACUTE EVENTS OVERNIGHT. NO ACUTE DISTRESS OBSERVED AT THIS TIME, PT LAYING IN BED, BREATHING EVEN AND UNLABORED, AROUSABLE TO VERBAL STIMULI. COMFORT AND SAFETY MEASURES MAINTAINED. ALL NEEDS ASSESSED AND ATTENDED TO. CALL LIGHT WITHIN REACH. WILL CONTINUE TO MONITOR AND ENDORSE CARE TO DAY SHIFT NURSE
[2018-07-13 05:44] VITALS: BP 153/60
[2018-07-13 06:58] LABS: BASOPHIL % 0.9 % (0-2); PLATELET COUNT 327 x10^3mcL (130-400)
[2018-07-13 07:08] LABS: CALCIUM 8.9 mg/dL (8.5-10.1); CARBON DIOXIDE 24.4 mmol/L (21-32); POTASSIUM SERUM 4.5 mmol/L (3.5-5.1)
[2018-07-13 07:10] LABS: CREATININE SERUM 8.5 mg/dL (0.7-1.3)
[2018-07-13 07:36] LABS: RED CELL DISTRIBUTION WIDTH 19.3 % (11.5-14.5)
--- NOTE | 2018-07-13 08:00 | NUR ---
SHIFT ASSESSMENT DONE. PATIENT A/A/OX3; LITHUANIAN SPEAKING. TELE#10; SR; HR = 74. NO RESP DISTRESS ON RA. DENIED PAIN. ANURIC. HAD H/D YESTERDAY W/ 2L OUT. FINISHED 100% OF BREAKFSAT. TOLERATED WELL. DENIED ABD PAIN. AV SHUNT TO LUE, THRILL (+)/BRUIT (+). HEALING RASHES ALL OVER BODY W/ BROWN SCABS/SCARS. DRY DRSG TO RT CHEST WALL. AMBULATORY. CALL LIGHT IN REACH.
--- NOTE | 2018-07-13 10:03 | NUR ---
DR. BYRD AND MEDICAL TEAM MADE MORNING ROUND. DRSG TO RT CHEST WALL CHANGED. WOUND CLOSED. NO REDNESS, NO DRAIANGE. DR. BYRD CHECKED WOUND. BANDAID APPLIED.
[2018-07-13 10:22] VITALS: BP 179/65
[2018-07-13 12:55] VITALS: BP 169/67
--- NOTE | 2018-07-13 16:30 | NUR ---
IV TO RFA INFILTRATED. D/C IV TO RFA. NEW IV INSERTION GIVEN TO R HAND W/ 22G NEEDLE. IV ABX RESUMED.
[2018-07-13 17:41] VITALS: BP 163/64
--- NOTE | 2018-07-13 18:19 | NUR ---
NO FEVER. DENIED PAIN. TOLERATED DIET WELL. HAD BM X1, NO URINE OUTPUT THIS SHIFT. IV TO R HAND INTACT. NAFCILLIN IVPB Q4H. ENDORSED CARE TO NOC NURSE.
--- NOTE | 2018-07-13 19:00 | NUR ---
RECEIVED PT FROM DAY SHIFT RN. PT IS AA&O X4 AND ABLE TO FOLLOW COMMAND. PT IS BENGALI SPEAKING AND CURRENTLY RESTING IN BED. THERE ARE NO SIGNS OF CHEST PAIN OR SHORTNESS OF BREATH ON ROOM AIR. NO USE OF ACCESSORY MUSCLES OR LABORED BREATHING ON ASSESSMENT. PT HAS A LEFT ARM SHUNT FOR HEMODIALYSIS NOTED. THERE IS A RIGHT HAND IV THAT IS CLEAN DRY AND INTACT AT THIS TIME. PT DENIES PAIN. SAFETY MEASURES ARE IN PLACE. BED IN LOWEST POSITION. CALL LIGHT IS WITHIN REACH. WILL CONTINUE TO MONITOR.
[2018-07-13 20:58] VITALS: BP 145/76
--- NOTE | 2018-07-14 01:47 | NUR ---
PT RESTING IN BED WITH EYES CLOSED. NO SIGNS OF DISTRESS. NO FACIAL GRIMMACING. NO USE OF ACCESSORY MUSCLES OR LABORED BREATHING. WILL CONTINUE TO MONITOR.
--- NOTE | 2018-07-14 05:21 | NUR ---
PT SLEPT IN INTERVALS THROUGHOUT THE NIGHT. NO DISTRESS NOTED. PT DENIES CHEST PAIN OR SHORTNESS OF BREATH. NO USE OF ACCCESSORY MUSCLES OR LABORED BREATHING ON ASSESSMENT. SAFETY MEASURES IN PLACE. CALL LIGHT WITHIN REACH. WILL CONTINUE TO MONITOR.
[2018-07-14 06:06] VITALS: BP 145/60
[2018-07-14 07:18] LABS: PLATELET COUNT 326 x10^3mcL (130-400)
--- NOTE | 2018-07-14 07:45 | NUR ---
FOUND PATIENT DID SELF INJECTION HUMULIN 70/30. PATIENT SAID THIS HUMULIN WAS HE TOOK FROM HOME SINCE ADMISSION ON 07/06/18. HS GAVE HIM SELF 8 UNITS W/ BREAKFAST. LOIS, CHARGE NURSE AWARE OF.
[2018-07-14 07:46] LABS: CALCIUM 8.6 mg/dL (8.5-10.1); CARBON DIOXIDE 21.5 mmol/L (21-32); MAGNESIUM 2.4 mg/dL (1.8-2.4); PHOSPHOROUS 8.9 mg/dL (2.5-4.9); POTASSIUM SERUM 4.9 mmol/L (3.5-5.1)
[2018-07-14 07:49] LABS: CREATININE SERUM 10.4 mg/dL (0.7-1.3)
--- NOTE | 2018-07-14 08:00 | NUR ---
SHIFT ASSESSMENT DONE. PATIENT A/A/OX4, CLEAR ROMANIAN SPEAKING. TELE#10; SR; HR = 62. DENIED CHEST PAIN. NO RESP DISTRESS ON RA. O2 SAT 98%. ANURIC. AV SHUNT TO LUE. THRILL(+)/BRUIT(+). AMBULATORY. IVTO R HAND INTACT. TOLERTED RENAL DIET BREAKFAST. NO N/V. C/O SKIN ITCHING AND WHOLE BODY SKIN SCRETCHING MARKERS W/ SCABS. MANNY. NO ACTIVE BLEEDING. PREVIOUS RAH CATHETER TO R UPPER CHEST WALL REMOVED ON 07/11, SITE COVERED WITH BANDAID D/C/I. DENIED PAIN. CALL LIGHT IN REACH.
[2018-07-14 08:12] LABS: RED CELL DISTRIBUTION WIDTH 19.1 % (11.5-14.5)
--- NOTE | 2018-07-14 10:05 | NUR ---
REPORTED TO DR. JEFFERSON WITH PATIENT HAD HOME MED OF HUMULIN 70/[address] JEFFERSON SAID HE WOULD TAKE CARE THIS PROBLEM.
[2018-07-14 10:10] VITALS: BP 176/67
--- NOTE | 2018-07-14 12:47 | NUR ---
HEMODIALYSIS DONE. 2.6L OUT. B/P = 135/54.
[2018-07-14 13:07] VITALS: BP 135/54
--- NOTE | 2018-07-14 15:33 | NUR ---
C/O HANDS SHAKING. BS = 37, REPEATED BS = 37. PATIENT REFUSED D50 IVP. PATIENT ALERT/ORIENTED. HE REFUSED ORANGE JUICE WHICH TO GIVE. PATIENT ACCEPTED APPLE JUICE WITH FRAN YANG. DR. JEFFERSON PAGED. WAITING FOR CALL BACK.
--- NOTE | 2018-07-14 16:00 | NUR ---
PATIENT HAD APPLE JUICE 120CC AND GRAHAMS CRACKERS 6 PIECES. RECHECKED BS = 82 BY ARTURO PLA.
--- NOTE | 2018-07-14 16:12 | NUR ---
PAGED DR. JEFFERSON X2. DR. JEFFERSON CALLED BACK WHEM I WAS HAVING LUNCH. REPORTED PATIENT'S BLOOR SUGER WAS 37 BY ARTURO ABREU. PATEINT'S BED SIDE INSULIN SENT TO PHARMACY BY ARTURO ABREU.
[2018-07-14 17:51] VITALS: BP 164/56
--- NOTE | 2018-07-14 18:12 | NUR ---
PATIENT FINISHED 100% OF DINNER. HE WANTED "HIS OWN INSULIN" INJECTION BY HIMSELF. EXPLAINED TO PATIENT THAT INSULIN INJECTION PER ORDER AND SLIDING SCALES, NOT "PRN" PER PATIENT'S FEELING. DIABETIC TEATHING MATERIAL IN BURMESE GIVEN. PATIENT SPEAK BURMESE, TRANSLATED BY GALE DAUGHERTY.
--- NOTE | 2018-07-14 19:40 | NUR ---
RECIEVED PT IN BED RESTING WITH SON AT BEDSIDE, PT A/0 X 4, TELE MONITOR 10 NSR, PT DENIES CHEST PAIN AT THIS TIME, PERIPHERAL PULSES PALPABLE, NO EDEMA NOTED, LUNG SOUNDS CTA, REPIRATIONS EVEN AND UNLABORED, BOWEL SOUNDS ACTIVE, SBD SOFT, ROUND NON TENDER, PT IS ANURIC, HD PT, LAST HD 07/14/18 2.6L OUT, PT AMBULATORY, CAN REPOSITION SELF IN BED INDEPENDENTLY. IV TO THE RIGHT FA, NS @ TKO, SAFETY PRECAUTIONS IN PLACE WILL CONTINUE TO MONITOR.
[2018-07-14 20:47] VITALS: BP 178/65
--- NOTE | 2018-07-14 21:22 | NUR ---
PT RESTING IN BED COMFORTABLY WATCHING TV, NO ACUTE DISTRESS AT THIS TIME, PT DENIES CHEST PAIN AND SOB AT THIS TIME SAFETY PRECAUTIONS IN PLACE WILL CONTINUE TO MONITOR
[2018-07-14 23:22] VITALS: BP 148/67
--- NOTE | 2018-07-14 23:22 | NUR ---
REASSESSED PT BLOOD PRESSURE AFTER GIVING BP MEDICATIONS, DUE TO A HIGH BLOOD PRESSURE READING OF 178/65 AT 2046, PT BLOOD PRESSURE IS NOW 148/67, SAFETY PRECAUTIONS IN PLACE WILL CONTINUE TO MONITOR.
--- NOTE | 2018-07-15 00:12 | NUR ---
PT SLEEPING IN BED COMFORTABLY WITH NO ACUTE SIGNS OF DISTRESS, RESPIRATIONS EVEN AND UNLABORED, SAFETY PRECAUTIONS IN PLACE WILL CONTINUE TO MONITOR
--- NOTE | 2018-07-15 05:28 | NUR ---
PT SLEPT ON AND OFF THROUGH THE NIGHT, PT HAD NO ACUTE DISTRESS THROUGH THE NIGHT, PT DENIED HAVING CHEST PAIN THROUGHOUT SHIFT, SAFETY PRECAUTIONS MAINTAINED THROUGHOUT SHIFT, ALL NEEDS ATTENDED TO WILL CONTINUE TO MONITOR AND ENDORSE CARE TO ONCOMING RN
[2018-07-15 05:47] VITALS: BP 119/65
[2018-07-15 07:27] LABS: BASOPHIL % 1.1 % (0-2); PLATELET COUNT 312 x10^3mcL (130-400)
[2018-07-15 07:28] LABS: RED CELL DISTRIBUTION WIDTH 19.2 % (11.5-14.5)
--- NOTE | 2018-07-15 07:30 | NUR ---
PT IS AAOX4. TELE [address] READING NSR. RESP EVEN AND UNLABORED. LUNG SOUNDS CTA. ON R/A. ABDOMEN SOFT, NONTENDER, NONDISTENDED. BOWEL SOUNDS ACTIVE. PT HAS SCATTERED SCABS AND ABRASIONS ON BUE, BLE, BACK AND ABDOMEN, ALL MANNY. NO S/S OF INFECTION NOTED. PT HAS A/V SHUNT TO LFA, BRUIT AND THRILL NOTED. IV CATH TO RH PATENT WITH FLUIDS RUNNING. SITE WNL. PT HAS UPPER R CHEST RAH CATH REMOVAL SITE, COVERED WITH CDI DRESSING. SITE WNL. BED IN LOW POSTION. CALL LIGHT WITHIN REACH.
[2018-07-15 07:31] VITALS: BP 168/64
[2018-07-15 08:30] LABS: CALCIUM 8.3 mg/dL (8.5-10.1); MAGNESIUM 2.2 mg/dL (1.8-2.4); PHOSPHOROUS 7.6 mg/dL (2.5-4.9); POTASSIUM SERUM 4.3 mmol/L (3.5-5.1)
[2018-07-15 08:34] LABS: CREATININE SERUM 8.3 mg/dL (0.7-1.3)
--- NOTE | 2018-07-15 09:57 | NUR ---
DR. BYRD AND MEDICAL TEAM MET WITH PT AND DISCUSSED POC. PT INSULIN ADJUSTED. PT TO TRANSFER TO SNF. PT AGREED WITH POC.
--- NOTE | 2018-07-15 12:02 | NUR ---
DUE MEDS GIVEN. PT DENIES PAIN OR DISCOMFORT. RESP EVEN AND UNLABORED. CALL LIGHT WITHIN REACH.
[2018-07-15 12:14] VITALS: BP 160/61
--- NOTE | 2018-07-15 14:04 | NUR ---
LUTHER HAY RN IN PT'S ROOM INSERTED PICC LINE. INFORMED CONSENT OBTAINED. THIS NURSE REMAINED AT BEDSIDE FOR ASSISTANCE.
--- NOTE | 2018-07-15 14:42 | NUR ---
PICC LINE WITH 2 PORTS PLACED TO R UPPER ARM. PORTS FLUSHED AND PATENT. PICC PLACEMENT VERIFIED BY CXR. PT TOLERATED PROCEDURE WELL. RESP EVEN AND UNLABORED. DENIES PAIN OR DISCOMFORT. CALL LIGHT WITHIN REACH. BED IN LOW POSITION.
[2018-07-15 15:55] VITALS: BP 150/85
--- NOTE | 2018-07-15 16:45 | NUR ---
PT TO TRANSFER TO [facility]. PHONE IS [phone]. REPORT GIVEN TO ARTURO MENDOZA. [facility] SCHEDULED FOR TAX COMPLIANCE OFFICER BETWEEN 6-7PM. PT MADE AWARE.
[2018-07-15 18:17] VITALS: BP 150/85
--- NOTE | 2018-07-15 18:32 | NUR ---
PT TRANSFERRED TO [facility]. TRANSFER ORDERS REVIEWED AND SIGNED BY PT. IV CATH TO RH REMOVED. SITE WNL. COVERED WITH GAUZE AND BANDAID. TELE [address] READING NSR. PICC LINE N/S LOCKED. VS: 97.0 F, 71, 16, 150/85, 98% ON R/A. PT DENIES PAIN OR DISCOMFORT AT TIME OF TRANSFER. ALL PERSONAL BELONGINGS TAKEN HOME.
== END 2018-07-15 18:32 | DRG 288 ==
LOC: ED 17:49 → DU 22:00 → EDBEDREQ 22:03 → EDBEDREQSVC 22:03 → EDBEDREQTM 22:03 → DU 23:16
PROVIDERS: Emergency Medicine; ADMIT Internal Medicine
PROC: 05PY33Z Removal of Infusion Device from Upper Vein, Percutaneous Approach (ICD-10-PCS; principal; 2018-07-11)
DX: I33.0 Acute and subacute infective endocarditis (principal); N17.0 Acute kidney failure with tubular necrosis; N18.6 End stage renal disease; E44.1 Mild protein-calorie malnutrition; E87.1 Hypo-osmolality and hyponatremia; B95.61 Methicillin susceptible Staphylococcus aureus infection as the cause of diseases classified elsewhere; I10 Essential (primary) hypertension; E11.22 Type 2 diabetes mellitus with diabetic chronic kidney disease; E87.5 Hyperkalemia; Z79.4 Long term (current) use of insulin; Z99.2 Dependence on renal dialysis; Z68.27 Body mass index [BMI] 27.0-27.9, adult
CPT/HCPCS: 82962; 84439; 87804; C1751; J0696; J1644; J1815; J2543; J3370; J3490; J7030; J7040; J7050; Q0092; Q0163